=== PATIENT | male | born 1935 | race Caucasian/White ===

== ENCOUNTER 2017-10-24 08:08 | Observation (INO) | payer MEDICARE ==
[~2017-10-24] VITALS: Ht 6038.7 cm; Wt 87.0 kg
[~2017-10-24 08:08] MED LIST: PREG150C PO
[2017-10-24] MEDS ORDERED: aspirin 81mg tab.chew PO ONE (08:25)
[2017-10-24 09:28] LABS: ALANINE AMINOTRANSFERASE 41 U/L (12-78); ALBUMIN 2.8 G/DL (3.4-5.0); ALBUMIN/GLOBULIN RATIO 0.7 (1.1-1.5); ALKALINE PHOSPHATASE 53 IU/L (46-116); ANION GAP 12 (8-16); ASPARTATE AMINO TRANSFERASE 44 U/L (10-37); BILIRUBIN,TOTAL 1.1 MG/DL (0.1-1.0); BLOOD UREA NITROGEN 23 MG/DL (7-18); BUN/CREATININE RATIO 17.6 (5.4-32.0); CHLORIDE 107 MMOL/L (99-107); CREATININE 1.31 MG/DL (0.60-1.10); GLUCOSE 129 MG/DL (70-104); POTASSIUM 3.6 MMOL/L (3.5-5.1); SODIUM 142 MMOL/L (135-145); TOTAL CARBON DIOXIDE 23.2 MMOL/L (24-32); TOTAL PROTEIN 6.6 G/DL (6.4-8.2); eGFR 52 ML/MIN
[2017-10-24 09:43] LABS: BASOPHILS % (AUTO) 0 % (0-1); EOSINOPHILS # (AUTO) 0.1 X10'3 (0-0.9); EOSINOPHILS % (AUTO) 1.1 % (0-6); HEMATOCRIT 45.1 % (42.0-52.0); HEMOGLOBIN 15.5 g/dl (14.0-17.9); LYMPHOCYTES # (AUTO) 0.1 X10'3 (1.1-4.8); LYMPHOCYTES % (AUTO) 1.1 % (21-51); MEAN CORPUSCULAR HGB CONC 34.4 % (33.0-36.5); MEAN CORPUSCULAR VOLUME 95.9 FL (78-98); MEAN PLATELET VOLUME 9.4 FL (7.4-10.4); MONOCYTES # (AUTO) 2.1 X10'3 (0-0.9); MONOCYTES % (AUTO) 15.2 % (2-12); NEUTROPHILS # (AUTO) 11.3 X10'3 (1.8-7.7); NEUTROPHILS % (AUTO) 82.6 % (42-75); PLATELET COUNT 170 X10'3 (140-440); RED CELL DISTRIBUTION WIDTH 14.4 % (11.5-14.5); WHITE BLOOD COUNT 13.7 X10'3 (4.5-11.0)
[2017-10-24] MEDS ORDERED: iohexol 350MG/ML 100ml bottle IV ONE (09:44)
[2017-10-24 10:02] LABS: TOTAL CELLS COUNTED 100
[2017-10-24 10:03] LABS: ANISOCYTOSIS 1+; PLATELET ESTIMATE NORMAL; POLYCHROMASIA FEW
[2017-10-24] MEDS ORDERED: normal saline 1000ML IV soln IVB ONE (10:20)
[2017-10-24] MEDS ORDERED: morphine 2 MG/ML inj. syringe IV PRN ×2 (11:45)
[2017-10-24] MEDS ORDERED: acetaminophen 325mg tablet PO PRN ×2 (11:45)
[2017-10-24] MEDS ORDERED: aspirin 325mg tablet PO ONE (11:45)
[2017-10-24] MEDS ORDERED: nitroGLYCERIN 0.4mg SUBLingual tab SL PRN (11:45)
[2017-10-24] MEDS ORDERED: BUPR1PAT TOP (12:23)
[2017-10-24 12:52] LABS: CHOL/HDL RATIO 6.4 (0.00-4.99); CHOLESTEROL 223 MG/DL (0-200); HDL CHOLESTEROL 35 MG/DL (35-60); LDL CHOLESTEROL 160 MG/DL (50-100); TRIGLYCERIDES 119 MG/DL (20-135)
[2017-10-24 13:10] LABS: BASOPHILS % (AUTO) 0 % (0-1); EOSINOPHILS # (AUTO) 0.1 X10'3 (0-0.9); EOSINOPHILS % (AUTO) 0.9 % (0-6); HEMATOCRIT 42.6 % (42.0-52.0); HEMOGLOBIN 14.8 g/dl (14.0-17.9); LYMPHOCYTES # (AUTO) 0.2 X10'3 (1.1-4.8); LYMPHOCYTES % (AUTO) 1.3 % (21-51); MEAN CORPUSCULAR HEMOGLOBIN 33.4 PG (27.0-31.0); MEAN CORPUSCULAR HGB CONC 34.7 % (33.0-36.5); MEAN CORPUSCULAR VOLUME 96.3 FL (78-98); MEAN PLATELET VOLUME 9.3 FL (7.4-10.4); MONOCYTES # (AUTO) 1.7 X10'3 (0-0.9); MONOCYTES % (AUTO) 13.9 % (2-12); NEUTROPHILS # (AUTO) 10.5 X10'3 (1.8-7.7); NEUTROPHILS % (AUTO) 83.9 % (42-75); PLATELET COUNT 150 X10'3 (140-440); RED BLOOD COUNT 4.42 X10'6 (4.70-6.10); RED CELL DISTRIBUTION WIDTH 14.3 % (11.5-14.5); WHITE BLOOD COUNT 12.6 X10'3 (4.5-11.0)
[2017-10-24] MEDS: pregabalin 75mg capsule PO SCH ×2 (13:24→21:05)
[2017-10-24] MEDS: metoprolol tartrate 12.5mg (1/2 tablet) PO SCH (19:56)
[2017-10-24] MEDS ORDERED: temazepam 15mg capsule PO PRN (21:00)
[2017-10-25] MEDS: pregabalin 75mg capsule PO SCH (08:00)
[2017-10-25] MEDS: metoprolol tartrate 12.5mg (1/2 tablet) PO SCH (08:00)
[2017-10-25] MEDS ORDERED: docusate sod 250mg capsule PO SCH (08:00)
[2017-10-25] MEDS ORDERED: aspirin 325mg tablet PO SCH (08:00)
[2017-10-25 08:35] LABS: ALANINE AMINOTRANSFERASE 70 U/L (12-78); ALBUMIN 2.6 G/DL (3.4-5.0); ALBUMIN/GLOBULIN RATIO 0.7 (1.1-1.5); ALKALINE PHOSPHATASE 53 IU/L (46-116); ANION GAP 11 (8-16); ASPARTATE AMINO TRANSFERASE 63 U/L (10-37); BILIRUBIN,TOTAL 0.8 MG/DL (0.1-1.0); BLOOD UREA NITROGEN 21 MG/DL (7-18); BUN/CREATININE RATIO 21.6 (5.4-32.0); CHLORIDE 110 MMOL/L (99-107); CREATININE 0.97 MG/DL (0.60-1.10); GLUCOSE 98 MG/DL (70-104); MAGNESIUM 2.1 MG/DL (1.5-2.4); POTASSIUM 3.7 MMOL/L (3.5-5.1); SODIUM 142 MMOL/L (135-145); TOTAL CARBON DIOXIDE 20.7 MMOL/L (24-32); TOTAL PROTEIN 6.4 G/DL (6.4-8.2); eGFR 74 ML/MIN
[2017-10-25] MEDS ORDERED: levoFLOXACIN-Levaquin 500mg/D5 100 ML IV SCH (09:31)
[2017-10-25] MEDS ORDERED: LEVO500T2 PO (09:57)
[2017-10-25] MEDS ORDERED: NITR0.4T51 SL (09:57)
[2017-10-25] MEDS ORDERED: METO25TA6 PO (09:57)
[2017-10-25] MEDS ORDERED: MELO15TA13 PO (09:58)
[2017-10-25 10:43] VITALS: BP 104/62
== END 2017-10-25 14:41 | disposition home or self-care (01) ==
LOC: ER 08:09 → ED HOLD 11:42
PROVIDERS: ADMIT Internal Medicine; ATTEND Internal Medicine
DX: R07.89 Other chest pain (principal); I10 Essential (primary) hypertension; D72.829 Elevated white blood cell count, unspecified; R00.0 Tachycardia, unspecified; N28.9 Disorder of kidney and ureter, unspecified; M94.0 Chondrocostal junction syndrome [Tietze]; B02.29 Other postherpetic nervous system involvement; Z85.72 Personal history of non-Hodgkin lymphomas
CPT/HCPCS: 36415; 71045; 71275; 80053; 80061; 83735; 83880; 84484; 85025; 87070; 93306; 96361; 96365; 99285; G0378; J1956; J7030; Q9967

== ENCOUNTER 2017-11-27 10:09 | Day surgery (SDC) | payer MEDICARE ==
[2017-11-26 12:45] LABS: BASOPHILS % (AUTO) 0 % (0-1); EOSINOPHILS # (AUTO) 0.2 X10'3 (0-0.9); EOSINOPHILS % (AUTO) 2.8 % (0-6); HEMATOCRIT 42.6 % (42.0-52.0); HEMOGLOBIN 14.6 g/dl (14.0-17.9); LYMPHOCYTES # (AUTO) 0.1 X10'3 (1.1-4.8); LYMPHOCYTES % (AUTO) 1.4 % (21-51); MEAN CORPUSCULAR HEMOGLOBIN 32.5 PG (27.0-31.0); MEAN CORPUSCULAR HGB CONC 34.2 % (33.0-36.5); MEAN PLATELET VOLUME 8.8 FL (7.4-10.4); MONOCYTES # (AUTO) 1.4 X10'3 (0-0.9); NEUTROPHILS # (AUTO) 6.5 X10'3 (1.8-7.7); NEUTROPHILS % (AUTO) 78.8 % (42-75); PLATELET COUNT 251 X10'3 (140-440); RED BLOOD COUNT 4.49 X10'6 (4.70-6.10); RED CELL DISTRIBUTION WIDTH 13.7 % (11.5-14.5); WHITE BLOOD COUNT 8.2 X10'3 (4.5-11.0)
[2017-11-26 12:55] LABS: ALBUMIN 3.1 G/DL (3.4-5.0); ANION GAP 8 (8-16); BLOOD UREA NITROGEN 13 MG/DL (7-18); BUN/CREATININE RATIO 11.5 (5.4-32.0); CALCIUM 9.2 MG/DL (8.5-10.1); CHLORIDE 106 MMOL/L (99-107); CREATININE 1.13 MG/DL (0.60-1.10); GLUCOSE 113 MG/DL (70-104); POTASSIUM 4.4 MMOL/L (3.5-5.1); SODIUM 140 MMOL/L (135-145); TOTAL CARBON DIOXIDE 26.2 MMOL/L (24-32); eGFR 62 ML/MIN
[2017-11-26 12:56] LABS: INR 1.1 INR; PARTIAL THROMBOPLASTIN TIME 29 SECONDS (22-32); PROTHROMBIN TIME 11.1 SECONDS (9.0-12.0)
[2017-11-27] VITALS (7 sets, daily range): BP systolic 92–117; BP diastolic 53–69
[~2017-11-27 10:09] MED LIST changes: +BUPR1PAT TOP; +MELO15TA13 PO; +METO25TA6 PO; +NITR0.4T51 SL
[2017-11-27] MEDS ORDERED: LORazepam 1 MG tablet PO PRN (10:45)
[2017-11-27] MEDS ORDERED: diphenhydrAMINE 25mg capsule PO PRN (10:45)
[2017-11-27] MEDS ORDERED: FLO0.4C PO (10:49)
[2017-11-27] MEDS ORDERED: PREG150C PO (10:49)
[2017-11-27] MEDS ORDERED: METO25TA6 PO (10:49)
[2017-11-27] MEDS ORDERED: LORazepam 0.5 MG tablet PO PRN (11:20)
[2017-11-27] MEDS ORDERED: fentaNYL/PF 50MCG/1 ML 2ML syringe ONE (11:46)
[2017-11-27] MEDS ORDERED: midazolam 2 mg/2 ml injection ONE (11:46)
[2017-11-27] MEDS ORDERED: LIDOcaine 1.5% w/epinephrine 1:200,000 5ml ampul ONE ×2 (11:46→13:26)
[2017-11-27] MEDS ORDERED: ceFAZolin 1000mg inj ONE (11:46)
[2017-11-27] MEDS ORDERED: iohexol 350 MG/ML 50ML vial IV ONE (12:53)
[2017-11-27] MEDS ORDERED: sod chloride 0.9% 10ml flush syringe IV SCH (16:00)
[2017-11-27] MEDS ORDERED: ceFAZolin 1GM/D5W- ADD-VANTAGE 50 ML IV SCH (16:00)
== END 2017-11-27 16:00 | disposition home or self-care (01) ==
LOC: SSTAY O 10:09
PROVIDERS: ATTEND Internal Medicine Cardiovascular Disease
DX: I49.5 Sick sinus syndrome (principal); I82.B12 Acute embolism and thrombosis of left subclavian vein; E78.5 Hyperlipidemia, unspecified; I49.3 Ventricular premature depolarization; I42.8 Other cardiomyopathies; Z85.46 Personal history of malignant neoplasm of prostate; Z90.89 Acquired absence of other organs; Z87.891 Personal history of nicotine dependence; Z72.89 Other problems related to lifestyle; Z98.52 Vasectomy status; Z85.028 Personal history of other malignant neoplasm of stomach; Z79.899 Other long term (current) drug therapy
CPT/HCPCS: 36415; 36590; 80048; 85025; 85610; 85730; 99152; 99153; A4565; A6219; J0690; J2250; J3010; J3490; J7030; Q0163; Q9967; A4620

== ENCOUNTER 2017-12-25 10:04 | Day surgery (SDC) | payer MEDICARE ==
[2017-12-24 12:30] LABS: BASOPHILS % (AUTO) 0.2 % (0-1); EOSINOPHILS # (AUTO) 0.2 X10'3 (0-0.9); EOSINOPHILS % (AUTO) 2.2 % (0-6); HEMATOCRIT 39.3 % (42.0-52.0); HEMOGLOBIN 13.5 g/dl (14.0-17.9); LYMPHOCYTES # (AUTO) 0.2 X10'3 (1.1-4.8); LYMPHOCYTES % (AUTO) 2.8 % (21-51); MEAN CORPUSCULAR HEMOGLOBIN 32.2 PG (27.0-31.0); MEAN CORPUSCULAR HGB CONC 34.3 % (33.0-36.5); MEAN CORPUSCULAR VOLUME 93.8 FL (78-98); MEAN PLATELET VOLUME 8.5 FL (7.4-10.4); MONOCYTES # (AUTO) 1.3 X10'3 (0-0.9); MONOCYTES % (AUTO) 15.4 % (2-12); NEUTROPHILS # (AUTO) 6.7 X10'3 (1.8-7.7); NEUTROPHILS % (AUTO) 79.4 % (42-75); PLATELET COUNT 250 X10'3 (140-440); RED BLOOD COUNT 4.19 X10'6 (4.70-6.10); RED CELL DISTRIBUTION WIDTH 14.9 % (11.5-14.5); WHITE BLOOD COUNT 8.4 X10'3 (4.5-11.0)
[2017-12-24 12:46] LABS: PROTHROMBIN TIME 10.7 SECONDS (9.0-12.0)
[2017-12-24 12:48] LABS: ALBUMIN 3.3 G/DL (3.4-5.0); ANION GAP 5 (8-16); BLOOD UREA NITROGEN 14 MG/DL (7-18); BUN/CREATININE RATIO 14.3 (5.4-32.0); CALCIUM 9.2 MG/DL (8.5-10.1); CHLORIDE 105 MMOL/L (99-107); CREATININE 0.98 MG/DL (0.60-1.10); GLUCOSE 99 MG/DL (70-104); POTASSIUM 4.7 MMOL/L (3.5-5.1); SODIUM 136 MMOL/L (135-145); TOTAL CARBON DIOXIDE 26.3 MMOL/L (24-32); eGFR 73 ML/MIN
[~2017-12-25] VITALS: Ht 203.2 cm; Wt 82.3 kg
[2017-12-25] VITALS (9 sets, daily range): BP systolic 109–135; BP diastolic 60–77
[~2017-12-25 10:04] MED LIST changes: +FLO0.4C PO; -MELO15TA13 PO; -NITR0.4T51 SL
[2017-12-25] MEDS ORDERED: normal saline 1000ml 1,000 ML IV SCH (10:30)
[2017-12-25] MEDS ORDERED: ceFAZolin 1,000 MG/D5W 50ML IVPB Premixed bag IV ONE (10:30)
[2017-12-25] MEDS ORDERED: midazolam 2 mg/2 ml injection ONE (11:13)
[2017-12-25] MEDS ORDERED: fentaNYL/PF 50MCG/1 ML 2ML syringe ONE (11:13)
[2017-12-25] MEDS ORDERED: LIDOcaine 1.5% w/epinephrine 1:200,000 5ml ampul ONE (11:13)
[2017-12-25] MEDS ORDERED: ceFAZolin 1000mg inj ONE (11:13)
[2017-12-25] MEDS ORDERED: ceFAZolin 1GM/D5W- ADD-VANTAGE 50 ML IV ONE (11:15)
[2017-12-25] MEDS ORDERED: ceFAZolin 1GM/D5W- ADD-VANTAGE 50 ML IV SCH (18:00)
== END 2017-12-25 18:30 | disposition home or self-care (01) ==
LOC: SSTAY O 10:04
PROVIDERS: ATTEND Internal Medicine Cardiovascular Disease
DX: I49.5 Sick sinus syndrome (principal); I44.7 Left bundle-branch block, unspecified; F32.9 Major depressive disorder, single episode, unspecified; E78.5 Hyperlipidemia, unspecified; I35.8 Other nonrheumatic aortic valve disorders; I48.3 Typical atrial flutter; I49.9 Cardiac arrhythmia, unspecified; M19.90 Unspecified osteoarthritis, unspecified site; Z86.79 Personal history of other diseases of the circulatory system; Z87.891 Personal history of nicotine dependence; Z85.028 Personal history of other malignant neoplasm of stomach; Z90.89 Acquired absence of other organs; Z72.89 Other problems related to lifestyle; Z98.52 Vasectomy status; Z85.46 Personal history of malignant neoplasm of prostate; Z85.79 Personal history of other malignant neoplasms of lymphoid, hematopoietic and related tissues; Z79.899 Other long term (current) drug therapy
CPT/HCPCS: 33208; 36415; 71046; 80048; 85025; 85610; 93005; 99152; 99153; A4565; C1785; C1894; C1898; J0690; J2250; J3010; J3490; J7030; A4620

== ENCOUNTER 2020-06-22 11:43 | Outpatient (CLI) | payer MEDICARE ==
[~2020-06-22 11:43] MED LIST changes: -FLO0.4C PO; -METO25TA6 PO
== END 2020-06-22 23:59 | disposition home or self-care (01) ==
LOC: CARD DIAG 11:43
PROVIDERS: ATTEND Internal Medicine Cardiovascular Disease
DX: I08.3 Combined rheumatic disorders of mitral, aortic and tricuspid valves (principal); I42.8 Other cardiomyopathies
CPT/HCPCS: 93306

== ENCOUNTER 2023-05-07 12:19 | Outpatient (CLI) | payer MEDICARE ==
[2023-05-07 13:22] LABS: ALANINE AMINOTRANSFERASE 43 U/L (12-78); ALBUMIN 3.6 G/DL (3.4-5.0); ALBUMIN/GLOBULIN RATIO 1.3 (1.1-1.5); ALKALINE PHOSPHATASE 76 IU/L (46-116); ANION GAP 8 (8-16); ASPARTATE AMINO TRANSFERASE 29 U/L (10-37); BILIRUBIN,TOTAL 0.8 MG/DL (0.1-1.0); BLOOD UREA NITROGEN 26 MG/DL (7-18); CALCIUM 9.6 MG/DL (8.5-10.1); CHLORIDE 108 MMOL/L (99-107); CREATININE 1.13 MG/DL (0.60-1.10); GLUCOSE 125 MG/DL (70-104); POTASSIUM 4.6 MMOL/L (3.5-5.1); SODIUM 140 MMOL/L (135-145); TOTAL CARBON DIOXIDE 24.2 MMOL/L (24-32); TOTAL PROTEIN 6.4 G/DL (6.4-8.2); eGFR 61 ML/MIN
== END 2023-05-07 23:59 | disposition home or self-care (01) ==
LOC: LAB 12:19
PROVIDERS: ATTEND Internal Medicine
DX: I10 Essential (primary) hypertension (principal)
CPT/HCPCS: 36415; 80053

== ENCOUNTER 2023-05-13 08:35 | Outpatient (CLI) | payer MEDICARE ==
[2023-05-13] MEDS ORDERED: GADOTERATE MEGLUMINE 7.5 MMOL/15 ML VIAL IV ONE (10:41)
== END 2023-05-13 23:59 | disposition home or self-care (01) ==
LOC: RAD 08:35
PROVIDERS: ATTEND Internal Medicine
DX: H05.89 Other disorders of orbit (principal); C85.90 Non-Hodgkin lymphoma, unspecified, unspecified site; H02.402 Unspecified ptosis of left eyelid
CPT/HCPCS: 70543; 70553; A9575

== ENCOUNTER 2023-09-15 11:15 | Day surgery (SDC) | payer MEDICARE ==
[~2023-09-15] VITALS: Ht 182.9 cm; Wt 84.6 kg
[2023-09-15] MEDS ORDERED: PREG50CA65 PO (11:51)
[2023-09-15] MEDS ORDERED: ATOR20TA66 PO (11:51)
[2023-09-15] MEDS ORDERED: LOSA25TA41 PO (11:51)
[2023-09-15] MEDS ORDERED: NITR0.4T51 SL (11:51)
[2023-09-15] MEDS ORDERED: ASPI-1264 PO (11:51)
[2023-09-15] MEDS ORDERED: METO25TA6 PO (11:51)
[2023-09-15] MEDS ORDERED: LIDOcaine 1% 30ml preserv. free vial SQ STA (12:00)
[2023-09-15 12:05] VITALS: BP 131/67; PULSE 74; RESP 16; TEMP 98.1; O2SAT 97
[2023-09-15] MEDS ORDERED: LIDOcaine 1% 30ml preserv. free vial ONE (13:04)
== END 2023-09-15 13:32 | disposition home or self-care (01) ==
LOC: SSTAY O 11:15
PROVIDERS: ATTEND Radiology Diagnostic Radiology
DX: K11.8 Other diseases of salivary glands (principal); D11.0 Benign neoplasm of parotid gland; I10 Essential (primary) hypertension; E78.5 Hyperlipidemia, unspecified; C69.60 Malignant neoplasm of unspecified orbit; Z79.899 Other long term (current) drug therapy; Z79.82 Long term (current) use of aspirin; Z95.0 Presence of cardiac pacemaker; Z85.72 Personal history of non-Hodgkin lymphomas; Z87.891 Personal history of nicotine dependence; Z72.89 Other problems related to lifestyle
CPT/HCPCS: 10005; J3490

== ENCOUNTER 2023-10-15 09:21 | Day surgery (SDC) | payer MEDICARE ==
[2023-10-13 11:01] LABS: BASOPHILS % (AUTO) 0.5 % (0-1); EOSINOPHILS # (AUTO) 0.3 X10'3 (0-0.9); EOSINOPHILS % (AUTO) 3.9 % (0-6); HEMATOCRIT 46.9 % (42.0-52.0); HEMOGLOBIN 15.3 g/dl (14.0-17.9); LYMPHOCYTES # (AUTO) 0.4 X10'3 (1.1-4.8); MEAN CORPUSCULAR HEMOGLOBIN 32.1 PG (27.0-31.0); MEAN CORPUSCULAR HGB CONC 32.5 g/dL (33.0-36.5); MEAN CORPUSCULAR VOLUME 98.7 FL (78-98); MEAN PLATELET VOLUME 9.3 FL (7.4-10.4); MONOCYTES # (AUTO) 1.2 X10'3 (0-0.9); MONOCYTES % (AUTO) 15.1 % (2-12); NEUTROPHILS % (AUTO) 75.5 % (42-75); PLATELET COUNT 189 X10'3 (140-440); RED BLOOD COUNT 4.75 X10'6 (4.70-6.10); RED CELL DISTRIBUTION WIDTH 14.9 % (11.5-14.5); WHITE BLOOD COUNT 7.9 X10'3 (4.5-11.0)
[2023-10-13 11:10] LABS: ALBUMIN 3.5 G/DL (3.4-5.0); ANION GAP 10 (8-16); BLOOD UREA NITROGEN 26 MG/DL (7-18); BUN/CREATININE RATIO 25.5 (10.0-20.0); CALCIUM 8.7 MG/DL (8.5-10.1); CHLORIDE 109 MMOL/L (99-107); CREATININE 1.02 MG/DL (0.60-1.10); GLUCOSE 100 MG/DL (70-104); POTASSIUM 4.2 MMOL/L (3.5-5.1); SODIUM 145 MMOL/L (135-145); TOTAL CARBON DIOXIDE 25.6 MMOL/L (24-32); eGFR 69 ML/MIN
[2023-10-13 11:13] LABS: APTT 26 SECONDS (22-32)
[2023-10-13 11:22] LABS: TOTAL CELLS COUNTED 100
[2023-10-13 11:23] LABS: PLATELET ESTIMATE NORMAL
[2023-10-15] VITALS (10 sets, daily range): BP systolic 119–137; BP diastolic 55–79; PULSE 60–79; RESP 14–17; TEMP 97.8; O2SAT 93–98
[~2023-10-15] VITALS: Ht 182.9 cm; Wt 85.4 kg
[~2023-10-15 09:21] MED LIST changes: +ASPI-1264 PO; +ATOR20TA66 PO; -BUPR1PAT TOP; +LOSA25TA41 PO; +METO25TA6 PO; +NITR0.4T51 SL; -PREG150C PO; +PREG50CA65 PO
[2023-10-15] MEDS ORDERED: RED600TA PO (10:19)
[2023-10-15] MEDS ORDERED: verapamil 2.5 mg/ml inj IV ONE (10:29)
[2023-10-15] MEDS ORDERED: LIDOcaine 1% (10mg/ml) 2ml vial ONE (10:29)
[2023-10-15] MEDS ORDERED: heparin 1,000unit/ml 10ml vial 10 ML ONE ×2 (10:30→12:59)
[2023-10-15] MEDS ORDERED: fentaNYL/PF 50MCG/1 ML 2ML syringe ONE (10:30)
[2023-10-15] MEDS ORDERED: nitroGLYCERIN 500mcg/5mL D5W 5 ML IV ONE (10:30)
[2023-10-15] MEDS ORDERED: midazolam 1 mg/ML 2ml injection ONE (10:30)
[2023-10-15] MEDS ORDERED: iohexol 350 MG/ML 50ML vial IV ONE (10:30)
[2023-10-15] MEDS ORDERED: iohexol 350MG/ML 100ml bottle IV ONE ×3 (10:30→12:19)
[2023-10-15] MEDS: normal saline 1,000 ML IV SCH (10:48)
[2023-10-15] MEDS: diphenhydrAMINE 25mg capsule PO PRN (10:49)
[2023-10-15] MEDS: LORazepam 0.5 MG tablet PO PRN (10:49)
[2023-10-15] MEDS ORDERED: heparin 25,000 UNIT/250ml bag 250 ML IV ONE (11:54)
[2023-10-15] MEDS ORDERED: heparin 1,000 UNITS/NS 500ml 500 ML ONE (12:09)
[2023-10-15] MEDS ORDERED: clopidogrel 300mg tablet ONE (12:49)
[2023-10-15] MEDS ORDERED: HYDROcodone/acetaminophen 10/325mg tab PO PRN (13:40)
[2023-10-15] MEDS ORDERED: HYDROcodone/acetaminophen 5mg/325mg tablet PO PRN (13:40)
[2023-10-15] MEDS: normal saline 1000ml 1,000 ML IV SCH (14:53)
[2023-10-20 07:15] LABS: ISTAT HGB ART 13.6 g/dl (14.0-17.9); ISTAT Hct ART 40 %PCV (42-52); ISTAT O2 SATURATION ARTERIAL 94 % (95-98); ISTAT SOURCE BLNK
[2023-10-20 07:16] LABS: ISTAT HGB MIX 13.6 g/dl (14.0-17.9); ISTAT Hct MIX 40 %PCV (42-52); ISTAT O2 SATURATION MIX VENOUS 59 % (60-80); ISTAT SOURCE BLNK
== END 2023-10-15 18:50 | disposition home or self-care (01) ==
LOC: SSTAY O 09:21
PROVIDERS: ATTEND Internal Medicine Cardiovascular Disease
DX: I25.10 Atherosclerotic heart disease of native coronary artery without angina pectoris (principal); I42.9 Cardiomyopathy, unspecified; I48.3 Typical atrial flutter; I08.0 Rheumatic disorders of both mitral and aortic valves; I10 Essential (primary) hypertension; E78.5 Hyperlipidemia, unspecified; I49.5 Sick sinus syndrome; I48.0 Paroxysmal atrial fibrillation; G47.30 Sleep apnea, unspecified; B02.29 Other postherpetic nervous system involvement; Z95.0 Presence of cardiac pacemaker; Z87.891 Personal history of nicotine dependence; Z85.46 Personal history of malignant neoplasm of prostate; Z79.01 Long term (current) use of anticoagulants; Z79.899 Other long term (current) drug therapy
CPT/HCPCS: 76937; 80048; 82803; 85014; 85025; 85347; 85610; 85730; 93005; 93460; 99152; 99153; A6258; C1874; C9600; J1644; J2250; J3010; J3490; J7030; Q0163; Q9967; 85007; 93458; 96360; A6402; C1725; C1751; C1769; C1894